=== PATIENT | female | born 2000 | race Caucasian/White ===

== ENCOUNTER 2021-04-26 05:20 | Inpatient (IN) ==
[2021-04-26] MEDS ORDERED: FAMOTIDINE 20 MG/2 ML VIAL IV PRN (05:39)
[2021-04-26] MEDS ORDERED: CITRIC ACID/SODIUM CITRATE 30 ML UDCUP PO PRN (05:39)
[2021-04-26] MEDS ORDERED: OXYTOCIN/LR 20 UNIT/1,000 ML BAG IV PRN (05:41)
[2021-04-26] MEDS ORDERED: CLINDAMYCIN INJ 900 MG/50 ML PREMIX IV PRN (05:41)
[2021-04-26] MEDS: LACTATED RINGERS 1,000 ML IV SCH ×2 (06:00→18:32)
[2021-04-26] MEDS ORDERED: ONDANSETRON 4 MG/2 ML VIAL ONE ×2 (07:02)
[2021-04-26] MEDS ORDERED: BUPIVACAINE SPINAL 0.75% 2 ML AMP SPINAL ONE (07:02)
[2021-04-26 07:04] LABS: Albumin 2.4 G/DL (3.4-5.0); Bilirubin,Total 0.4 MG/DL (0.20-1.00); Calcium 8.9 MG/DL (8.5-10.1); Osmolality,Calculated 274.5 MOS/KG (273-304); Total Protein 6.7 G/DL (6.4-8.2)
[2021-04-26] MEDS ORDERED: miSOPROStoL 200 MCG TABLET ONE (07:14)
[2021-04-26] MEDS ORDERED: METHYLERGONOVINE 0.2 MG/1 ML AMP ONE (07:15)
[2021-04-26 07:29] LABS: Basophils % 0.2 % (0.0-0.8); Eosinophils # 0.1 10*3/uL (0.0-0.87); Eosinophils % 0.9 % (0.00-10.9); Hematocrit 33.9 VOL% (35.7-47.0); Hemoglobin 10.1 GM/DL (12.0-16.0); Immature Granulocytes % 0.4 %; Immature Granulocytes Absolute 0.04 #; Lymphocytes # 1.9 10*3/uL (1.4-4.0); Lymphocytes % 17.5 % (21.3-54.2); Mean Corpuscular HGB Conc 29.8 GM/DL (32-36); Mean Corpuscular Volume 71.8 FL (87-102); Mean Platelet Volume 10.8 FL (9.6-12.0); Monocytes % 3.7 % (1.7-12.7); Neutrophils % 77.3 % (38.7-73.9); Platelet Count 259 T/CUMM (130-400); Red Blood Count 4.72 MC/CUMM (3.8-5.5); Red Cell Distribution Width 17.8 % (9.3-17.3); White Blood Count 10.6 T/CUMM (4-12)
[2021-04-26] MEDS ORDERED: OXYTOCIN/LR 20 UNIT/1,000 ML BAG IV ONE (08:00)
[2021-04-26] MEDS ORDERED: PHENYLEPHRINE 1 MG/10 ML SYRINGE IV ONE ×2 (08:04)
[2021-04-26] MEDS ORDERED: KETOROLAC 30 MG/1 ML VIAL ONE (08:04)
[2021-04-26 08:14] LABS: Cord Arterial Blood HCO3 25.3 MMOL/L
[2021-04-26 08:14] LABS: Bilirubin,Urine Negative (Negative); Blood, Urine Negative (Negative); Glucose,Urine (UA) Negative (Negative); Ketones,Urine Negative (Negative); Mucus,Urine Occasional /LPF (Occasional); Nitrite,Urine Negative (Negative); Protein,Urine Negative; RBC,Urine <1 /HPF (0-4); Urine Appearance CLEAR (Clear); Urine Color Yellow (Yellow); Urine Specific Gravity 1.017 (1.001-1.035); Urine Urobilinogen < 2.0 EU/DL (<2.0)
[2021-04-26 08:16] LABS: Cord Venous Blood HCO3 22.8 MMOL/L; Cord Venous Blood PCO2 44.3 MMHG
[2021-04-26] MEDS ORDERED: MAGNESIUM HYDROXIDE SUSP 30 ML UDCUP PO PRN (08:42)
[2021-04-26] MEDS ORDERED: ACETAMINOPHEN 325 MG TABLET PO PRN (08:42)
[2021-04-26] MEDS ORDERED: RHO(D) IMMUNE GLOBULIN 300 MCG SYRINGE IM ONE (08:42)
[2021-04-26] MEDS ORDERED: ONDANSETRON 4 MG/2 ML VIAL IV PRN (08:42)
[2021-04-26] MEDS ORDERED: PROMETHAZINE 25 MG/1 ML VIAL ONE (08:47)
[2021-04-26] MEDS ORDERED: LACTATED RINGERS 1,000 ML IV SCH (09:00)
[2021-04-26] MEDS ORDERED: FERROUS SULFATE 325 MG TABLET PO SCH (09:00)
[2021-04-26] MEDS: ACETAMINOPHEN 500 MG TABLET PO SCH ×2 (12:58→18:32)
[2021-04-26] MEDS: KETOROLAC 30 MG/1 ML VIAL IV SCH ×2 (15:06→21:55)
[2021-04-26] MEDS: CLINDAMYCIN INJ 900 MG/50 ML PREMIX IV SCH (19:12)
[2021-04-26] MEDS: DOCUSATE SODIUM 100 MG CAPSULE PO SCH (21:55)
[2021-04-27] MEDS: CLINDAMYCIN INJ 900 MG/50 ML PREMIX IV SCH (00:52)
[2021-04-27] MEDS: ACETAMINOPHEN 500 MG TABLET PO SCH (00:52)
[2021-04-27] MEDS: KETOROLAC 30 MG/1 ML VIAL IV SCH (03:20)
[2021-04-27 05:40] LABS: Basophils # 0.1 10*3/uL (0.0-0.2); Basophils % 0.5 % (0.0-0.8); Eosinophils # 0.3 10*3/uL (0.0-0.87); Eosinophils % 2.9 % (0.00-10.9); Hematocrit 26.1 VOL% (35.7-47.0); Hemoglobin 7.8 GM/DL (12.0-16.0); Immature Granulocytes % 0.5 %; Immature Granulocytes Absolute 0.05 #; Lymphocytes # 1.8 10*3/uL (1.4-4.0); Lymphocytes % 18.6 % (21.3-54.2); Mean Corpuscular HGB Conc 29.9 GM/DL (32-36); Mean Corpuscular Volume 72.5 FL (87-102); Mean Platelet Volume 11.2 FL (9.6-12.0); Monocytes % 5.6 % (1.7-12.7); Neutrophils % 71.9 % (38.7-73.9); Platelet Count 211 T/CUMM (130-400); Red Cell Distribution Width 17.8 % (9.3-17.3); White Blood Count 9.7 T/CUMM (4-12)
[2021-04-27] MEDS: SIMETHICONE CHEW 80 MG TABLET PO PRN ×2 (07:57→19:49)
[2021-04-27] MEDS: IBUPROFEN 800 MG TABLET PO PRN ×2 (07:57→16:14)
[2021-04-27] MEDS: MULTIVITAMIN (PRENATAL) TABLET PO SCH (12:00)
[2021-04-27] MEDS ORDERED: MAGNESIUM CITRATE 300 ML BOTTLE PO ONE (19:38)
[2021-04-27] MEDS: FERROUS SULFATE 325 MG TABLET PO SCH (19:48)
[2021-04-27] MEDS: DOCUSATE SODIUM 100 MG CAPSULE PO SCH (19:49)
[2021-04-27 20:59] LABS: Hematocrit 28.3 VOL% (35.7-47.0); Hemoglobin 8.8 GM/DL (12.0-16.0)
[2021-04-28] MEDS: IBUPROFEN 800 MG TABLET PO PRN (00:14)
[2021-04-28] MEDS: DOCUSATE SODIUM 100 MG CAPSULE PO SCH ×2 (01:06→09:04)
[2021-04-28] MEDS: ACETAMINOPHEN 500 MG TABLET PO SCH (01:07)
[2021-04-28] MEDS ORDERED: IBUPROFEN 800 MG TABLET PO PRN (06:48)
[2021-04-28 07:24] VITALS: BP 129/75
[2021-04-28] MEDS: FERROUS SULFATE 325 MG TABLET PO SCH (09:03)
[2021-04-28] MEDS: MULTIVITAMIN (PRENATAL) TABLET PO SCH (09:04)
[2021-04-28] MEDS ORDERED: DIPH/TET/ACEL PERT BOOSTER VACCINE 0.5 ML VIAL IM ONE (11:07)
== END 2021-04-28 11:31 | disposition home or self-care (01) | DRG 540 ==
LOC: N.LD 05:20 → N.OB 12:05
PROVIDERS: ADMIT Obstetrics & Gynecology; ATTEND Obstetrics & Gynecology
PROC: LDCSECT (ICD-10-PCS; 2021-04-26 07:30)